=== PATIENT | female | born 1970 | race Caucasian/White ===

== ENCOUNTER → 2017-08-16 | Emergency (ER) | payer OTHER ==
[~2017-08-16] VITALS: Ht 162.6 cm; Wt 63.5 kg
[~2017-08-16] MED LIST: IBUPROFEN800 MG PO
== END | disposition home or self-care (01) ==
LOC: ER 21:04
DX: S82.031A Displaced transverse fracture of right patella, initial encounter for closed fracture (principal); S90.02XA Contusion of left ankle, initial encounter; W18.39XA Other fall on same level, initial encounter; Y93.89 Activity, other specified; Y92.59 Other trade areas as the place of occurrence of the external cause; Y99.8 Other external cause status

== ENCOUNTER 2018-04-03 07:00 | Day surgery (SDC) | payer OTHER | END 2018-04-03 13:15 | disposition home or self-care (01) | LOC: CIR.AMB 07:00 | DX: T84.84XA Pain due to internal orthopedic prosthetic devices, implants and grafts, initial encounter (principal) ==